=== PATIENT | female | born 2000 | race Caucasian/White ===

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

== ENCOUNTER 2022-08-23 02:55 | Emergency (ER) | payer OTHER, SELFPAY ==
[2022-08-23] VITALS (15 sets, daily range): BP systolic 83–120; BP diastolic 50–58; PULSE 50–73; RESP 17; TEMP 36.6; O2SAT 97–100; BMI 22.3
[2022-08-23 03:28] LABS: Add Manual Diff / Slide Review NO; Basophils Absolute Auto 0 /uL (0-100); Basophils Percent Auto 0.1 % (0-2); Eosinophils Absolute Auto 0 /uL (0-450); Eosinophils Percent Auto 0.1 % (2-4); Hematocrit 41.5 % (36-46); Hemoglobin 14.3 g/dL (12.0-16.0); Lymphocytes Absolute Auto 1300 /uL (1100-4500); Lymphocytes Percent Auto 8.4 % (25-40); Mean Corpuscular HGB Conc 34.5 % (30-36); Mean Corpuscular Hemoglobin 30.5 PG (26-34); Mean Corpuscular Volume 88.4 fL (80-100); Monocytes Absolute Auto 1100 /uL (0-900); Monocytes Percent Auto 7.1 % (3-14); Neutrophils Absolute Auto 12500 /uL (1500-7000); Neutrophils Percent Auto 84.3 % (50-75); Platelet Count 157 X10^3/uL (150-400); Red Blood Cell Count 4.69 X10^6/uL (4.0-5.2); Red Cell Distribution Width 13.8 % (11.6-14.8); White Blood Cell Count 14.9 X10^3/uL (4.5-11.0)
[2022-08-23] MEDS: ONDANSETRON 4 MG/2 ML INJ IV (03:28)
[2022-08-23 03:39] LABS: Alanine Aminotransferase 16 IU/L (<35); Albumin 4.3 g/dL (3.5-5.0); Albumin Globulin Ratio 1.4 (1.0-2.8); Alkaline Phosphatase 70 U/L (38-126); Aspartate Aminotransferase 17 IU/L (14-36); BUN Creatinine Ratio 12.8 (6-22); Bilirubin Total 2.1 mg/dL (0.2-1.3); Blood Urea Nitrogen 6 mg/dL (7-17); Calcium 9.1 mg/dL (8.4-10.2); Carbon Dioxide 20 mmol/L (22-32); Chloride 104 mmol/L (98-107); Estimated Glomerular Filt Rate > 60 mL/min (>60); Glucose 88 mg/dL (70-100); HEMOLYSIS < 15 (0-50); Lipase 51 U/L (23-300); Potassium 3.6 mmol/L (3.4-5.1); Sodium 134 mmol/L (137-145); Total Protein 7.3 g/dL (6.3-8.2)
[2022-08-23] MEDS: SODIUM CHLORIDE 0.9% 1,000 ML 1000 ML IV ×2 (04:14→04:59)
[2022-08-23] MEDS: KETOROLAC 30 MG/ML VIAL 15 MG IV (04:14)
--- NOTE | 2022-08-23 04:21 | ED.ABDPAIN ---
HPI - Abdominal Pain General Chief Complaint: Abdominal Pain Stated Complaint: ABD Pain Nausea vomiting Time Seen by Provider: 08/23/22 03:30 Source: patient Mode of arrival: Ambulatory History of Present Illness HPI narrative: Patient healthy 21-year-old female who presents with diarrhea vomiting and back pain. She is 8 weeks . She reports it started around 11:00 a.m. this morning she had frequent episodes of diarrhea she was unable to keep anything down she had vomited multiple times including bile. She has bilateral flank pain. Helps when it gets massage to rubbed but soon as that stops it comes again. She is not able to keep down any medication. She feels a little lightheaded no dizziness she did not pass out. She denies any vaginal bleeding. She reports that she had an ultrasound a couple days ago she reports that everything looked good which are assuming is an IUP. She has no specific lower abdominal pain. Related Data Home Medications Medication Instructions Recorded Confirmed cholecalciferol (vitamin D3) 125 125 mcg PO DAILY 08/03/22 08/19/22 mcg (5,000 unit) capsule prenat.vits,simone,[id number]-ajjo-guxji 1 tab PO DAILY 08/03/22 08/19/22 Previous Rx's Medication Instructions Recorded ondansetron 4 mg disintegrating 4 mg PO Q6H #20 tabs 08/19/22 tablet ondansetron 4 mg disintegrating 4 mg PO Q8H PRN nausea and 08/23/22 tablet vomiting #10 tabs Allergies Allergy/AdvReac Type Severity Reaction Status Date / Time amoxicillin [AMOXICILLIN] Allergy Unknown Rash Verified 08/19/22 11:24 Review of Systems Review of Systems ROS Unobtainable: All systems reviewed & are unremarkable except as noted in HPI and below Patient History Medical History Anxiety disorder Bulimia nervosa Genital herpes Surgical History H/O exploratory laparotomy History of surgery on arm Previous section Family History Grandfather Pancreatic cancer Diabetes mellitus Grandmother Pancreatic cancer Breast cancer Liver cancer Mother Hypertension Family estrangement Grandmother Hypertension Social History marital status: unmarried,living together number of children: 1 household members: significant other and children lives independently: Yes caregiver/support person: Yes housing: house pets and animals: Yes education level: high school occupational status: employed current occupational exposures/hazards: No special darrick needs: No travel history: recent (domestic only) seatbelt use: always water heater temp set < 120 deg: Yes working smoke detector in home: Yes fire extinguisher in home: Yes carbon monox detector in home: Yes firearms in home: Yes firearms unloaded and locked: Yes do you feel safe at home: Yes Smoking Status: Former smoker Tobacco: How many years used: 4 second hand exposure: No alcohol intake: never substance use type: does not use during the past year weight has: other (more than pre-baby, but happier w/ this weight) daily servings fruits/ve-4 caffeine: No Type(s) of exercise: walking, weight lifting and other (pilates) additional social history: Hx bulimia, pt stopped purging when she got with her first child and has felt that there is too much to live for since then and has not had a relapse although she has never had any formal eating disorder treatment. She feels that her current weight is much healthier than her pre-baby weight was, and does not have concerns about knowing her weights during . Smoking Status: Former smoker Substance Use Type: does not use Exam Initial Vital Signs Initial Vital Signs: Vital Signs Temperature 98 F 08/23/22 03:07 Pulse Rate 59 L 08/23/22 03:07 Respiratory Rate 17 08/23/22 03:07 Blood Pressure 120/58 L 08/23/22 03:07 Pulse Oximetry 97 08/23/22 03:07 Oxygen Delivery Method Room Air 08/23/22 03:07 GENERAL: Alert 21-year-old female HEENT: Head atraumatic,EOMI, pupils reactive, face symmetric, moist mucous membranes CARDIOVASCULAR: Regular rate and rhythm without murmurs, rubs or gallops. RESPIRATORY: Breath sounds equal bilaterally, no wheezes rales or rhonchi. ABDOMEN: Soft, nontender. Normoactive bowel sounds all 4 quadrants. No guarding or rebound. : Mild bilateral CVA tenderness significant pain EXTREMITIES: Normal range of motion, no clubbing or edema. Neurovascularly intact NEUROLOGICAL: Alert and oriented x4. SKIN: Warm, dry, no laceration, no petechiae, no rashes or lesions. Course Orders Ordered: ED Orders 08/23/22 03:20 Complete Blood Count AUTO DIFF Stat Comprehensive Metabolic Panel Stat Lactate (Lactic Acid) Stat Lipase Stat Ondansetron HCl (Ondansetron 4 Mg Odt) 4 mg PO NOW PRN PRN Reason: Nausea And Vomiting Ondansetron HCl (Ondansetron 4 Mg/2 Ml Inj) 4 mg IV NOW PRN PRN Reason: Nausea And Vomiting Last Admin: 08/23/22 03:28 Dose: 4 mg Documented By: HNG Discontinued Medications Sodium Chloride (Normal Saline 0.9%) 1,000 mls @ 1,000 mls/hr IV BOLUS ONE Stop: 08/23/22 04:53 Last Infusion: 08/23/22 04:58 Dose: 0 mls/hr Documented By: Admin: 08/23/22 04:14 Dose: 1,000 mls/hr Documented By: CEZAR Sodium Chloride (Normal Saline 0.9%) 1,000 mls @ 1,000 mls/hr IV BOLUS ONE Stop: 08/23/22 05:39 Last Admin: 08/23/22 04:59 Dose: 1,000 mls/hr Documented By: CEZAR Ketorolac Tromethamine (Ketorolac 30 Mg/Ml Vial) 15 mg IV NOW ONE Stop: 08/23/22 03:55 Last Admin: 08/23/22 04:14 Dose: 15 mg Documented By: CEZAR Vital Signs Vital signs: Vital Signs - 8 hr 08/23/22 03:07 Temperature 98 F Pulse Rate 59 L Respiratory Rate 17 Blood Pressure 120/58 L Pulse Oximetry 97 Oxygen Delivery Method Room Air MDM - Abdominal Pain Lab Data 08/23/22 03:20 08/23/22 03:20 Labs: Lab Results 08/23/22 08/23/22 08/23/22 Range/Units 03:20 03:20 03:20 WBC 14.9 H (4.5-11.0) X10^3/uL RBC 4.69 (4.0-5.2) X10^6/uL Hgb 14.3 (12.0-16.0) g/dL Hct 41.5 (36-46) % MCV 88.4 (80-100) fL MCH 30.5 (26-34) PG MCHC 34.5 (30-36) % RDW 13.8 (11.6-14.8) % Plt Count 157 (150-400) X10^3/uL Neut % (Auto) 84.3 H (50-75) % Lymph % (Auto) 8.4 L (25-40) % [place] % (Auto) 7.1 (3-14) % Eos % (Auto) 0.1 L (2-4) % Baso % (Auto) 0.1 (0-2) % Neut # (Auto) 15717 H (6423-9785) /uL Lymph # (Auto) 1300 (2042-8659) /uL [place] # (Auto) 1100 H (0-900) /uL Eos # (Auto) 0 (0-450) /uL Baso # (Auto) 0 (0-100) /uL Sodium 134 L (137-145) mmol/L Potassium 3.6 (3.4-5.1) mmol/L Chloride 104 (98-107) mmol/L Carbon Dioxide 20 L (22-32) mmol/L BUN 6 L (7-17) mg/dL Creatinine 0.47 L (0.52-1.04) mg/dL Estimated GFR > 60 (>60) mL/min BUN/Creatinine Ratio 12.8 (6-22) Glucose 88 (70-100) mg/dL Lactate 1.0 (0.7-2.1) mmol/L Calcium 9.1 (8.4-10.2) mg/dL Total Bilirubin 2.1 H (0.2-1.3) mg/dL AST 17 (14-36) IU/L ALT 16 (<35) IU/L Alkaline Phosphatase 70 (38-126) U/L Total Protein 7.3 (6.3-8.2) g/dL Albumin 4.3 (3.5-5.0) g/dL Globulin 3.0 (1.7-4.1) g/dL Albumin/Globulin Ratio 1.4 (1.0-2.8) Lipase 51 (23-300) U/L Point of care testing: Urine Dip Bedside Urine Glucose Negative Bedside Urine Bilirubin - Negative Bedside Urine Ketone +++ 80 Urine Specific [place] 1.03 Bedside Urine Occult Blood - Negative Bedside Urine pH 6 Bedside Urine Protein - Negative Bedside Urine Urobilinogen - Negative Bedside Urine Nitrite - Negative Bedside Urine Leukocytes - Negative Esterase MDM Narrative Medical decision making narrative: Patient is a healthy 21-year-old female who presents with diarrhea back pain and vomiting for the last 12 hours or so. Unable to keep anything down. She does drop her blood pressure a little. She is given 2 L of IV fluids and Toradol. She is mild leukocytosis of 14 but no electrolyte abnormality or elevated lactate. She really has a soft abdomen I do not feel like she needs any imaging. She has no evidence of vaginal bleeding do not suspect a miscarriage at this time. Her symptoms are consistent with a gastroenteritis of diarrhea and vomiting. Although possible that it is hyperemesis gravidarum. He is tolerating fluids. Blood pressure was low but it came up after 2 L. Discharge Plan Departure Patient Disposition: Home Clinical Impression: Gastroenteritis, Instructions: DI for Viral Gastroenteritis -- Adult Activity Restrictions/Additional Instructions: *You have been diagnosed with gastroenteritis *What to do: Increase fluid intake as tolerated recommend Gatorade or Gatorade like product. *Continue to take medications as directed Zofran 4 mg every 8 hours if needed for nausea or vomiting *Follow up with your primary care provider in 2-3 days or call [phone] *Return to ER if you should have persistent vomiting despite medication. Dizziness lightheadedness or passing out. [or] any new, worsening or concerning symptoms Prescriptions: New ondansetron 4 mg tablet,disintegrating 4 mg PO Q8H PRN (Reason: nausea and vomiting) Qty: 10 0RF No Action ondansetron 4 mg tablet,disintegrating 4 mg PO Q6H Qty: 20 2RF cholecalciferol (vitamin D3) 125 mcg (5,000 unit) capsule 125 mcg PO DAILY prenat.vits,simone,[id number] Tablet 1 tab PO DAILY Referrals: Miscellaneous,Doctor, MD [Primary Care Provider] - Stand Alone Forms: Patient Portal/API
== END 2022-08-23 06:26 | disposition home or self-care (01) ==
PROVIDERS: Emergency Provider Emergency Medicine
DX: O26.891 Other specified pregnancy related conditions, first trimester (principal); K52.9 Noninfective gastroenteritis and colitis, unspecified; Z3A.08 8 weeks gestation of pregnancy
CPT/HCPCS: 36415; 80053; 81003; 83605; 83690; 85025; 96374; 96375; 99284; J1885; J2405

== ENCOUNTER → 2022-09-15 10:06 | Outpatient (CLI) | payer OTHER, SELFPAY ==
[2022-09-15 11:40] LABS: Add Manual Diff / Slide Review NO; Basophils Absolute Auto 0 /uL (0-100); Basophils Percent Auto 0.2 % (0-2); Eosinophils Absolute Auto 100 /uL (0-450); Eosinophils Percent Auto 0.8 % (2-4); Hematocrit 42.2 % (36-46); Hemoglobin 14.6 g/dL (12.0-16.0); Lymphocytes Absolute Auto 1900 /uL (1100-4500); Lymphocytes Percent Auto 19.4 % (25-40); Mean Corpuscular HGB Conc 34.6 % (30-36); Mean Corpuscular Hemoglobin 31.3 PG (26-34); Mean Corpuscular Volume 90.3 fL (80-100); Monocytes Absolute Auto 800 /uL (0-900); Monocytes Percent Auto 8.4 % (3-14); Neutrophils Absolute Auto 7100 /uL (1500-7000); Neutrophils Percent Auto 71.2 % (50-75); Platelet Count 174 X10^3/uL (150-400); Red Blood Cell Count 4.67 X10^6/uL (4.0-5.2); Red Cell Distribution Width 13.5 % (11.6-14.8)
[2022-09-15 12:10] LABS: Hepatitis B Surface Antigen NEGATIVE s/c (NEGATIVE); Rubella Antibody IgG 72.7 IU/mL (>15)
[2022-09-15 12:29] LABS: HIV 1 & 2 Ab/Ag 4th Gen Combo NEGATIVE (NEGATIVE); Hep C Virus Ab w/Reflex Quant NEGATIVE s/c (NEGATIVE)
[2022-09-16 06:19] LABS: RPR Screen Non Reactive (Non Reactive)
[2022-09-16 11:37] LABS: Varicella IgG Antibody 345 index (Immune >165)
== END ==
PROVIDERS: Referring Provider Obstetrics & Gynecology; Visit Provider Obstetrics & Gynecology
DX: Z34.81 Encounter for supervision of other normal pregnancy, first trimester (principal)
CPT/HCPCS: 36415; 80055; 86787; 86803; 86850; 86900; 86901; 87389

== ENCOUNTER → 2022-11-11 08:43 | Outpatient (CLI) | payer OTHER, SELFPAY ==
[2022-11-11 14:51] LABS: Urine N gonorrhoeae NOT DETECTED
[2022-11-11 15:05] LABS: Urine Chlamydia NOT DETECTED
== END ==
PROVIDERS: Visit Provider Specialist
DX: Z34.82 Encounter for supervision of other normal pregnancy, second trimester (principal); Z3A.19 19 weeks gestation of pregnancy
CPT/HCPCS: 87491; 87591

== ENCOUNTER → 2022-11-12 14:43 | Outpatient (CLI) | payer OTHER, SELFPAY ==
--- NOTE | 2022-11-12 14:44 | DI.US.S_ITS ---
PROCEDURE: US OB >= 14 WEEKS FETUS INDICATIONS: ANATOMY SCAN OUTSIDE/PRIOR DATING DATA: Last menstrual period (LMP): 06/17/2022. LMP-based estimated date of delivery (MADALYN): 03/24/2023 First dating scan (date and location): 08/19/2022. Estimated date of delivery (MADALYN) from first dating scan: 04/01/2023. The calculations are made using the working MADALYN of 04/01/2023. TECHNIQUE: Real-time scanning was performed of the fetus, with image documentation and biometric measurements. Endovaginal scanning: Non COMPARISON: [facility] [place], , OB >= 14 WEEKS FETUS, 09/15/2022, 10:07. FINDINGS: General: A single living intrauterine gestation is present. Presentation: Cephalic. Placenta: Placental position is posterior , without previa. Amniotic fluid index: 10.0 cm, normal range is 5-24 cm. Single deepest vertical pocket is 3.7 cm. heart rate: 135 beats per minute. Maternal cervical canal: 3.7 cm long. Normal lower limit is 2.5 cm. biometrics: Biparietal diameter: 4.6 cm, 20 week 0 day Head circumference: 17.4 cm, 20 week 0 day Abdominal circumference: 14.7 cm, 20 week 0 day Femur length: 3.2 cm, 20 week 0 day Clinically estimated gestational age: 20 week 0 day Composite gestational age from present scan: 20 week 0 day Estimated weight and percentile: 327 g, 46th percentile Anatomic survey: Neuro: Ventricles are non-dilated at less than 10 mm. Cisterna magna is normal at 3-11 mm. Cerebellum is normal in size and morphology. Nuchal skin fold: Normal at less than 6 mm between 14-21 weeks gestational age. Face: Nose and lips, facial profile are normal. Spine: No evidence for spina bifida. Heart: 4-chambered heart is present, with normal ventricular outflow tracts. Diaphragm: Diaphragm is intact. Stomach: Left-sided stomach is present. Kidneys: No hydronephrosis. Normal is less than 5 mm in 2nd trimester, less than 7 mm in 3rd trimester. Cord: 3-vessel cord has orthotopic insertion. Bladder: Normal in size. Extremities: All 4 extremities identified. IMPRESSION: Single live intrauterine consistent with 20 week 0 day gestation Approved by: Dieter Tobar M.D. on 11/12/2022 at 20:43
[2022-11-14 22:11] LABS: AFP Value 71.4 ng/mL (.); Insulin Dep Diabetes No (.); OSBR Risk 1IN 6916 (.); Results Report (.); Test Results *Screen Negative* (.)
== END ==
PROVIDERS: Specialist; Referring Provider Obstetrics & Gynecology; Visit Provider Obstetrics & Gynecology
DX: Z34.82 Encounter for supervision of other normal pregnancy, second trimester (principal); Z3A.20 20 weeks gestation of pregnancy
CPT/HCPCS: 36415; 76811; 82105; 87086

== ENCOUNTER 2022-12-27 16:21 | Outpatient (CLI) | payer OTHER, SELFPAY ==
--- NOTE | 2022-12-27 17:38 | P.HPOB_ITS ---
OB HPI Date/Time Date Patient Seen: 12/27/22 Time Patient Seen: 17:38 History of Present Condition Chief complaint: pelvic pain /spotting : 2 Para: 1 Estimated Date of Delivery: 04/01/23 Estimated Gestational Age (weeks): 26w 3d Narrative: Patient gives a week and a half history of lower abdominal pain. She states it is roughly 6/10 maximum. She states it is worse while she is moving twisting and turning. 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 She states that the pain gets progressively worse throughout the day. She states she feels a ripping pain particularly on the left-hand side. She has had a previous section which could explain that sensation. She also has had an episode of spotting of red blood in the underwear about a dime size over the last day. She has not had any recent intercourse to precipitate this. She denies any contraction pain at this time. History of Present care: good care Dating criteria: based on 1st trimester US only Ultrasounds: normal mid trimester US (Twenty week ultrasound did not show evidence of any previa.) Obstetrical complications: none (Patient had a previous section done roughly 2 years ago for distress.) Preadmission Labs Blood type: O (+) positive [facility] Medical History (Updated 11/11/22 @ 08:52 by Lolly Morales MD) Anxiety disorder Bulimia nervosa Genital herpes Headache Scoliosis Surgical History (Updated 08/29/22 @ 20:51 by Pari Trujillo) Anesthesia H/O exploratory laparotomy History of surgery on arm (~2006) Previous section (~04/22/21) Family History (Updated 08/29/22 @ 20:54 by Pari Trujillo) Grandfather Pancreatic cancer Diabetes mellitus Grandmother Pancreatic cancer Breast cancer Liver cancer Thyroid cancer Cancer of kidney Mother Hypertension Family estrangement Mental health problem Grandmother Hypertension Mental health problem Father Diabetes mellitus Grandfather Colon cancer Social History marital status: unmarried,living together number of children: 1 household members: significant other and children lives independently: Yes caregiver/support person: Yes housing: house pets and animals: Yes education level: high school occupational status: employed current occupational exposures/hazards: No special darrick needs: No travel history: recent (domestic only) seatbelt use: always water heater temp set < 120 deg: Yes working smoke detector in home: Yes fire extinguisher in home: Yes carbon monox detector in home: Yes firearms in home: Yes firearms unloaded and locked: Yes do you feel safe at home: Yes Smoking Status: Former smoker Tobacco: How many years used: 4 second hand exposure: No alcohol intake: never substance use type: does not use during the past year weight has: other (more than pre-baby, but happier w/ this weight) daily servings fruits/ve-4 caffeine: No Type(s) of exercise: walking, weight lifting and other (pilates) additional social history: Hx bulimia, pt stopped purging when she got with her first child and has felt that there is too much to live for since then and has not had a relapse although she has never had any formal eating disorder treatment. She feels that her current weight is much healthier than her pre-baby weight was, and does not have concerns about knowing her weights during . Meds Home Medications and Allergies Home Medications Medication Instructions Recorded Confirmed Type cholecalciferol (vitamin D3) 125 125 mcg PO DAILY 08/03/22 12/10/22 History mcg (5,000 unit) capsule prenat.vits,simone,[id number] 1 tab PO DAILY 08/03/22 12/10/22 History ondansetron 4 mg disintegrating 4 mg PO Q6H #20 tabs 08/19/22 12/10/22 Rx tablet ondansetron 4 mg disintegrating 4 mg PO Q8H PRN nausea and 08/23/22 12/10/22 Rx tablet vomiting #10 tabs Allergies Allergy/AdvReac Type Severity Reaction Status Date / Time amoxicillin [AMOXICILLIN] Allergy Unknown Rash Verified 12/10/22 08:51 OB Exam Vital signs Blood Pressure: 92/51 Pulse Rate: 100 Respiratory Rate: 13 Temperature: 36.6 F HENMT Head: normal to inspection Mouth: lip normal, tongue normal and other (Dentition is in good repair) Eyes Direct ophthalmoscopy: normal light reflex and other (Nonicteric) Resp Effort & Inspection: normal respiratory effort and able to speak in complete sentences Auscultation: clear to auscultation bilaterally Cardio Rate: regular rate Rhythm: regular rhythm Heart Sounds: S1 normal and S2 normal GI Inspection: normal to inspection and incision (Clean and dry) Palpation: Yes soft and Yes tender (uterus nontender. tenderness groin bilaterally duplicates pain) Auscultation: normal bowel sounds External Female Exam: Yes normal external appearance Speculum Exam - Vagina: Yes normal appearance of the vagina and Yes normal dis charge Speculum Exam - Cervix: normal appearance of the cervix Bimanual Exam- Vagina & Uterus: normal bimanual exam (Cervix closed no bleeding long presenting part high) Assessment and Plan Assessment and Plan Assessment and Plan narrative: 22-year-old G2 P 1001 with EDC 01 April 2026 weeks 3 days by first-trimester ultrasound. Bilateral round ligament pain. 2. Spotting with a non please previa and O- positive blood type. Patient reassured. Told to repeat port any further spotting. Told that she should stay off work for the next 4 days. Recommend that she try half days to see how she tolerates this. Time Spent with Patient Total time spent with greater than 50% in coordination of care (as documented) at patient's floor/unit and/or counseling patient:: Greater than 35 minutes (Time was spent with history and physical, explaining her medical process. Reviewing treatment plan.)
[2022-12-27 17:53] VITALS: BP 92/51; PULSE 100; RESP 13; TEMP 2.6; TEMP 36.6
== END 2022-12-27 17:43 | disposition home or self-care (01) ==
LOC: LABOR 16:25 → OB 12-31 09:57
PROVIDERS: Referring Provider Obstetrics & Gynecology; Visit Provider Obstetrics & Gynecology
DX: O26.852 Spotting complicating pregnancy, second trimester (principal); O26.892 Other specified pregnancy related conditions, second trimester; R10.30 Lower abdominal pain, unspecified; Z3A.26 26 weeks gestation of pregnancy
CPT/HCPCS: 59025; G0378; G0379

== ENCOUNTER → 2023-01-13 08:19 | Outpatient (CLI) | payer OTHER, SELFPAY ==
[2023-01-13 09:53] LABS: Hematocrit 35.3 % (36-46); Hemoglobin 12.2 g/dL (12.0-16.0)
[2023-01-13 10:29] LABS: GTT (PREG) 1 Hour PP 50gm Dose 100 mg/dL (76-139)
== END ==
PROVIDERS: Referring Provider Specialist; Visit Provider Specialist
DX: Z34.82 Encounter for supervision of other normal pregnancy, second trimester (principal)
CPT/HCPCS: 36415; 82950; 85014; 85018

== ENCOUNTER → 2023-02-18 10:44 | Outpatient (CLI) | payer OTHER, SELFPAY ==
[2023-02-20 11:29] LABS: Candida species Positive (Negative); Gardnerella vaginalis Negative (Negative); Trichomoas vaginalis Negative (Negative)
== END ==
PROVIDERS: Visit Provider Physician Assistant Medical
DX: N89.8 Other specified noninflammatory disorders of vagina (principal)
CPT/HCPCS: 87480; 87510; 87660

== ENCOUNTER → 2023-03-02 09:26 | Outpatient (CLI) | payer OTHER, SELFPAY ==
[2023-03-03 12:38] LABS: Strep Grp B PCR NEG for Grp B Strep
== END ==
PROVIDERS: Visit Provider Obstetrics & Gynecology
DX: Z34.83 Encounter for supervision of other normal pregnancy, third trimester (principal); Z3A.35 35 weeks gestation of pregnancy
CPT/HCPCS: 87653

== ENCOUNTER 2023-03-25 05:40 | Inpatient (IN) | payer OTHER, SELFPAY ==
[2023-03-25 06:06] VITALS: BP 96/56
--- NOTE | 2023-03-25 06:51 | P.HPOB_ITS ---
OB HPI Date/Time Date of admission: 03/25/23 Date Patient Seen: 03/25/23 Time Patient Seen: 06:51 History of Present Condition Chief complaint: Repeat MADALYN Calculator Estimated Delivery Date Method Current WG Current Estimate 04/01/23 Ultrasound #1 39w 0d Other Estimates 03/24/23 LMP (Certain) 40w 1d Estimated Gestational Age (weeks): 39 : 2 Para: 1 care: initiated at week # (7), number of visits (12) and pounds weight gain (15) Dating criteria OB: LMP confirmed by 1st trimester US Ultrasounds: normal 1st trimester US and normal mid trimester US Obstetrical complications: none Medical complications OB: none Indications Operative indications ( section): previous uterine surgery Preadmission Labs Last OB Lab Results: Blood Type O Positive 09/15/22 10:25 Antibody Screen Negative 09/15/22 10:25 Hematocrit 35.3 % (36-46) L 01/13/23 09:31 Hemoglobin 12.2 g/dL (12.0-16.0) 01/13/23 09:31 Hepatitis B Surface Antigen Negative s/c (NEGATIVE) 09/15/22 10 :25 Hepatitis C Antibody Negative s/c (NEGATIVE) 09/15/22 10:25 Rubella Antibody 72.7 IU/mL (>15) 09/15/22 10:25 Varicella-Zoster IgG Antibody 345 index (Immune >165) 09/15/22 10:25 Glucose 1 Hour 100 mg/dL (76-139) 01/13/23 09:31 Group B Streptococcus (PCR) Neg for grp b strep 03/02/23 09:26 -: Chlamydia screen: negative, Gonorrhea screen: negative and Urine: negative -: PAP smear: Normal Genetic Screens: Cell-free DNA: Normal and Alpha-fetoprotein: Normal External Labs -: Urine: negative Prior (ies) Past Pregnancies Del. Date GA/Weeks Labor Lgth Wt Sex Route Outcome Anesthesia Place Delv Breastfeed Preg Comp Name 04/22/21 40.1 6 lb 1 oz Male live - full term [facility] 5 months none Jose Delivery Date: 04/22/21 Last Updated by: Faye Betancourt RN failed induction, intolerance Evaluation Evaluation Baseline heart rate: 125 Variability: Moderate (11-25) monitor accelerations: Present Monitor Decelerations: Absent Status: Category l PFSH Medical History (Updated 11/11/22 @ 08:52 by Lolly Morales MD) Headache Scoliosis Genital herpes Bulimia nervosa Anxiety disorder Surgical History (Updated 08/29/22 @ 20:51 by Pari Trujillo) Anesthesia H/O exploratory laparotomy History of surgery on arm (~2006) Previous section (~04/22/21) Family History (Updated 08/29/22 @ 20:54 by Pari Trujillo) Grandfather Pancreatic cancer Diabetes mellitus Grandmother Pancreatic cancer Breast cancer Liver cancer Thyroid cancer Cancer of kidney Mother Hypertension Family estrangement Mental health problem Grandmother Hypertension Mental health problem Father Diabetes mellitus Grandfather Colon cancer Social History marital status: unmarried,living together number of children: 1 household members: significant other and children lives independently: Yes caregiver/support person: Yes housing: house pets and animals: Yes education level: high school occupational status: employed current occupational exposures/hazards: No special darrick needs: No travel history: recent (domestic only) seatbelt use: always water heater temp set < 120 deg: Yes working smoke detector in home: Yes fire extinguisher in home: Yes carbon monox detector in home: Yes firearms in home: Yes firearms unloaded and locked: Yes do you feel safe at home: Yes Smoking Status: Former smoker Tobacco: How many years used: 4 second hand exposure: No alcohol intake: never substance use type: does not use during the past year weight has: other (more than pre-baby, but happier w/ this weight) daily servings fruits/ve-4 caffeine: No Type(s) of exercise: walking, weight lifting and other (pilates) additional social history: Hx bulimia, pt stopped purging when she got with her first child and has felt that there is too much to live for since then and has not had a relapse although she has never had any formal eating disorder treatment. She feels that her current weight is much healthier than her pre-baby weight was, and does not have concerns about knowing her weights during . Meds Home Medications and Allergies Home Medications Medication Instructions Recorded Confirmed Type cholecalciferol (vitamin D3) 125 125 mcg PO DAILY 08/03/22 03/18/23 History mcg (5,000 unit) capsule prenat.vits,simone,hkl-hhmn-asord 1 tab PO DAILY 08/03/22 03/18/23 History ondansetron 4 mg disintegrating 4 mg PO Q6H #20 tabs 08/19/22 03/18/23 Rx tablet ondansetron 4 mg disintegrating 4 mg PO Q8H PRN nausea and 08/23/22 03/18/23 Rx tablet vomiting #10 tabs valacyclovir 500 mg tablet 500 mg PO BID #10 tabs 03/02/23 03/18/23 Rx (Valtrex) valacyclovir 500 mg tablet 500 mg PO DAILY #30 tabs 03/02/23 03/18/23 Rx (Valtrex) Allergies Allergy/AdvReac Type Severity Reaction Status Date / Time amoxicillin [AMOXICILLIN] Allergy Unknown Rash Verified 03/18/23 11:51 OB Exam Narrative Exam Narrative: Generally: Patient is sitting up in bed, no acute distress Lungs: Clear to auscultation bilaterally Cardiovascular: Regular rhythm Fundal height: 38 cm Estimated weight: 7 lb Abdomen: Well-healed Pfannenstiel incision. No hepatosplenomegaly Extremities: No edema Assessment and Plan Assessment and Plan Assessment and Plan narrative: Assessment: 22-year-old 2 para 1 at 39 weeks gestation with a previous section Plan: Repeat low-transverse section The risks, benefits, and alternatives to the procedure were explained to the patient. The risks including bleeding, infection, injury to the bowel, bladder, or ureters. She understands all of these risks and agrees to proceed. A full par Q was held and consent form was signed. Time Spent with Patient Total time spent with greater than 50% in coordination of care (as documented) at patient's floor/unit and/or counseling patient:: less than 15 minutes
--- NOTE | 2023-03-25 07:00 | PM.PREOP ---
Pre-operative Note Interval Note History & Physical reviewed/Exam performed by Physician: Yes Changes to H&P: No H&P completed within 30 days and has changed as indicated here:: 03/25/23
[2023-03-25 07:01] LABS: Add Manual Diff / Slide Review NO; Basophils Absolute Auto 0 /uL (0-100); Basophils Percent Auto 0.4 % (0-2); Eosinophils Absolute Auto 100 /uL (0-450); Eosinophils Percent Auto 1.7 % (2-4); Hematocrit 31.8 % (36-46); Hemoglobin 10.7 g/dL (12.0-16.0); Lymphocytes Absolute Auto 2000 /uL (1100-4500); Lymphocytes Percent Auto 26.3 % (25-40); Mean Corpuscular HGB Conc 33.7 % (30-36); Mean Corpuscular Hemoglobin 28.9 PG (26-34); Mean Corpuscular Volume 85.9 fL (80-100); Monocytes Absolute Auto 600 /uL (0-900); Monocytes Percent Auto 7.7 % (3-14); Neutrophils Absolute Auto 4800 /uL (1500-7000); Neutrophils Percent Auto 63.9 % (50-75); Platelet Count 145 X10^3/uL (150-400); Red Blood Cell Count 3.71 X10^6/uL (4.0-5.2); Red Cell Distribution Width 12.9 % (11.6-14.8); White Blood Cell Count 7.5 X10^3/uL (4.5-11.0)
[2023-03-25 07:22] VITALS: BP 96/59
[2023-03-25] MEDS: CITRIC ACID/SODIUM CITRATE 15 ML SOLUTION 30 ML PO (07:37)
[2023-03-25] MEDS: CEFAZOLIN 2 GM/100 ML PREMIX 100 ML IV (08:00)
[2023-03-25] MEDS: ACETAMINOPHEN IV 1,000 MG/100 ML VIAL 400 MG IV (08:15)
--- NOTE | 2023-03-25 08:24 | SUR.OPER ---
Supine on Padded OR bed, head on pillow, safety belt at thigh, arms secured on padded arm boards at <90 degrees abduction. Bump under right buttock. Legs uncrossed with pillow under knees, gel pad to heels, tape over blanket to lower legs.
--- NOTE | 2023-03-25 08:34 | SUR.OPER ---
Viable baby girl born at 0826. Placenta delivered at 0829. Placenta and cord blood given to OB RN. Suction vacuum delivery kit used x1.
--- NOTE | 2023-03-25 09:09 | PM.OBCS.1 ---
Operative Date/Time/Diagnoses Date of procedure: 03/25/23 Time of procedure: 09:09 Pre-op diagnosis: 39 weeks gestation Previous C section Post-op diagnosis: same Procedure & Clinicians Procedure: Repeat low transverse C section Lysis of omental adhesions Same procedure as scheduled: Yes Indications: 22 year old at 39 wks gestation with a previous C section Surgeon: Veena Hallman Click Yes if Unassisted: No Novelty Printing Machine Operator: Kaylynn Choudhury Reason for Novelty Printing Machine Operator: The bilingual medical assistant was necessary to retract upon entry into the abdomen the uterus. She assisted with delivery of the with fundal pressure. She assisted with closure with retraction, clipping of suture, and closure of the contralateral fascia. Anesthesia Type: Spinal (with Duramorph) Operative Notes Findings: Live female infant in the [facility] presentation Omental adhesions to fundus Normal uterus, tubes and ovaries Clear Amniotic fluid Closure Type: primary Specimen(s): cord blood and placenta Intraoperative meds administered: Acetaminophen, Duramorph, Ketorolac and Pitocin Applied: Catheter (to continuous drainage) Estimated Blood Loss (mL): 650 Blood products transfused: none Procedure in detail: The patient was taken to the operating room where she was placed in the seated position. Spinal anesthesia with Duramorph was administered. The patient was then placed in the dorsal supine position with a leftward tilt. She was prepped and draped in the usual sterile fashion. A timeout was performed. After spinal analgesia was found to be adequate, a Pfannenstiel skin incision was made through the previous incision and carried through to the underlying layer fascia. The fascia was nicked in the midline, and the incision extended bilaterally with the Fried scissors. The superior aspect of the fascial incision was grasped with a Morehead clamps, elevated, and the underlying rectus muscles dissected off sharply and bluntly. Attention was then turned to the inferior aspect of this incision which in a similar fashion was grasped with a Morehead clamps, elevated, and the underlying rectus muscles dissected off sharply and bluntly. The rectus muscles were in the midline. The peritoneum was identified, grasped between 2 hemostats, and entered sharply with the Metzenbaum scissors. This incision was extended superiorly and inferiorly with good visualization of the bladder. The bladder blade was inserted. The vesicouterine peritoneum was identified, grasped with the pickup, and entered sharply with the Metzenbaum scissors. This incision was extended bilaterally, and the bladder flap was created digitally. The bladder blade was reinserted. The lower uterine segment was incised in a transverse fashion with the scalpel. Upon entering the amniotic sac there was moderate amount of clear amniotic fluid. The 's head was delivered without difficulty. The nose and mouth were suctioned with bulb suction. The remainder of the body delivered without difficulty. The cord was double clamped and cut after one minute. The infant was handed off to waiting RN and RT. The placenta was delivered by expression. The uterus was cleared of all clots and debris. The uterine incision was repaired with #1 chromic in a running interlocking fashion, and a second layer the same suture was used for an imbricating layer. Hemostasis was achieved. The tubes and ovaries were examined and were found to be normal. There was omentum stuck to the fundus of the uterus. These were taken down with the Bovie The gutters were cleared of all clots and debris. The bladder flap was reapproximated using 2-0 Vicryl in a running fashion. The parietal peritoneum was closed using 2-0 Vicryl in a running fashion. The fascia was reapproximated using 0 Vicryl in a running fashion. The subcutaneous layer was copiously irrigated with warm normal saline. 5 simple interrupted sutures of 3-0 Vicryl were placed to reapproximate the subcutaneous layer. The skin was closed with 4-0 Monocryl in a subcuticular fashion. Steri-Strips were placed. An Aquacel dressing was placed. The uterus was expressed of a small amount of old blood. Sponge, lap, and instrument counts were correct x-2. The patient tolerated the procedure well, and was taken to PACU in stable condition. Complications: none Baby 1: Infant Gender: Female Presentation: vertex Position: Left Occiput Anterior Placental Delivery Description: Expressed Cord Vessel Description: 3 Vessels and Clamped/Cut (after one minute) score (1 min): 9 score (5 min): 9 weight: 6 lb 10.5 oz Post-operative Condition: stable Disposition: PACU Aftercare: routine postop
[2023-03-25 09:15] VITALS: BP 95/65; PULSE 73; RESP 16; TEMP 36.6; O2SAT 98
[2023-03-25 09:20] VITALS: BP 85/44; PULSE 60; RESP 14; O2SAT 99
[2023-03-25 09:25] VITALS: BP 86/37; PULSE 54; RESP 16; TEMP 36.2; O2SAT 95
[2023-03-25 12:25] LABS: Add Manual Diff / Slide Review NO; Basophils Absolute Auto 0 /uL (0-100); Basophils Percent Auto 0.2 % (0-2); Eosinophils Absolute Auto 100 /uL (0-450); Eosinophils Percent Auto 0.5 % (2-4); Hematocrit 30.3 % (36-46); Hemoglobin 10.2 g/dL (12.0-16.0); Lymphocytes Absolute Auto 1400 /uL (1100-4500); Lymphocytes Percent Auto 10.1 % (25-40); Mean Corpuscular HGB Conc 33.6 % (30-36); Mean Corpuscular Hemoglobin 28.7 PG (26-34); Mean Corpuscular Volume 85.5 fL (80-100); Monocytes Absolute Auto 700 /uL (0-900); Neutrophils Absolute Auto 11800 /uL (1500-7000); Neutrophils Percent Auto 84.2 % (50-75); Platelet Count 147 X10^3/uL (150-400); Red Blood Cell Count 3.54 X10^6/uL (4.0-5.2); Red Cell Distribution Width 12.9 % (11.6-14.8)
[2023-03-25] MEDS: KETOROLAC 30 MG/ML VIAL IV ×2 (14:44→20:45)
[2023-03-25] MEDS: ACETAMINOPHEN 325 MG TABLET 650 MG PO (16:19)
[2023-03-26] MEDS: KETOROLAC 30 MG/ML VIAL IV (02:52)
[2023-03-26] MEDS: ACETAMINOPHEN 325 MG TABLET 650 MG PO (08:50)
[2023-03-26] MEDS: DOCUSATE 100 MG CAPSULE PO (08:50)
[2023-03-26] MEDS: IBUPROFEN 600 MG TABLET PO (08:50)
[2023-03-26] MEDS: PRENATAL VIT,CALC/IRON/FOLIC 1 TABLET 1 TAB PO (08:50)
--- NOTE | 2023-03-28 11:26 | PM.OBDS.1 ---
Discharge Providers Provider Date of admission: 03/25/23 05:40 Discharge Date: 03/26/23 Primary care physician: Doctor Tere MD Consults: 03/25/23 09:32 Consult to Net Application Architect Routine Comment: Discharge provider: Veena Hallman MD Summary Hospital Course Date Patient Seen: 03/26/23 Time Patient Seen: 12:00 Diagnoses: 39 weeks' gestation Previous section Repeat low-transverse section Hospital Course: Patient is a 22-year-old 2 para 2 who presented on March 25, 2023 for a scheduled repeat section at 39 weeks' gestation. She underwent this procedure without complication. She did have a headache while in the operating room and this resolved in the recovery room. Her postoperative course was unremarkable. On postop day # 1 she was tolerating a diet, voiding without the catheter, going well, ambulating without assistance, and pain was well controlled. She is discharged home to follow-up at 1 week for an Aquacel dressing removal. Peripartum Data Delivery Method: Section Procedures: Spinal anesthesia Repeat low-transverse section complications: none 1: Gender: Female Disposition of : home Status at Discharge Cognitive/behavioral status at discharge: oriented Functional status at discharge: independent ambulation Overall status at discharge: patient is progressing back to baseline Time Spent with Patient Time attestation: Total time spent providing and/or coordinating discharge services: Time spent: Less than 30 minutes Objective Labs 03/25/23 11:55 Exam Vital Signs (past 8 hours): Oxygen Delivery Method Room Air Narrative Exam Narrative: Generally: Patient is sitting up in bed, holding infant, no acute distress Lungs: Clear to auscultation bilaterally Cardiovascular: Regular rate and rhythm Fundus: Firm at U -2 Incision: Clean dry and intact with Aquacel dressing Extremities: No edema, negative Homans Discharge Plan Discharge Plan Patient Disposition: Home Provider Discharge Comment: Call with fever, chills, redness or drainage around the incision, or bleeding vaginally more than a pad in an hours Ibuprofen 600 mg every 6 hours as needed Tylenol 650 mg every 6 hours as needed Discharge orders & Medications Prescriptions: Continued cholecalciferol (vitamin D3) 125 mcg (5,000 unit) capsule 125 mcg PO DAILY prenat.vits,simone,[id number] Tablet 1 tab PO DAILY Discontinued ondansetron 4 mg tablet,disintegrating 4 mg PO Q6H Qty: 20 2RF valacyclovir [Valtrex] 500 mg tablet 500 mg PO BID Qty: 10 3RF valacyclovir [Valtrex] 500 mg tablet 500 mg PO DAILY Qty: 30 0RF ondansetron 4 mg tablet,disintegrating 4 mg PO Q8H PRN (Reason: nausea and vomiting) Qty: 10 0RF Follow up/Referrals: Veena Hallman MD [Physician] - (one week follow up for aquacel removal on 04/01/2023 at 10:30 am. six week follow up on 05/06/2022 at 11:30 am. ) Diet/Activity/Treatments Diet: Regular Activity: No heavy lifting Nothing in the vagina for 6 weeks Skin/Wound/Dressing Care Report to your healthcare provider any signs of infection, such as:: chills, fever, increased pain, unusual drainage and unusual redness Dressing: Do not remove Visit Report/Discharge Packet Instructions: DI for Stand Alone Forms: Discharge: Care, Patient Portal/API, Stroke Signs & Symptoms Discharge Data Primary Care Provider: Miscellaneous,Doctor
== END 2023-03-26 12:50 | disposition home or self-care (01) | DRG 788 ==
PROVIDERS: Admitting Provider Obstetrics & Gynecology; Referring Provider Obstetrics & Gynecology; Visit Provider Obstetrics & Gynecology
PROC: 10D00Z1 Extraction of Products of Conception, Low, Open Approach (ICD-10-PCS; CPT 59514; principal; 2023-03-25 07:45)
DX: O34.211 Maternal care for low transverse scar from previous cesarean delivery (principal); O99.62 Diseases of the digestive system complicating childbirth; K66.0 Peritoneal adhesions (postprocedural) (postinfection); Z3A.39 39 weeks gestation of pregnancy; Z37.0 Single live birth
CPT/HCPCS: 36415; 59050; 59510; 59514; 85025; 86850; 86900; 86901; J0131; J0690; J1885; J2250; J2274

== ENCOUNTER → 2023-05-07 10:19 | Outpatient (CLI) | payer OTHER, SELFPAY ==
--- NOTE | 2023-05-07 10:20 | DI.US.S_ITS ---
ULTRASOUND OF LEFT BREAST AND AXILLA: 05/07/2023 CLINICAL: Palpable left breast lump x 5 weeks ( x 6 weeks). No prior exams were available for comparison. Color flow and real-time ultrasound of the left breast axilla were performed. Ivey scale images of the real-time examination were reviewed. There is a 2.9 cm x 1.5 cm x 2.7 cm wider than tall cluster of oval complicated cysts in the left breast at 11 o'clock posterior depth 10 cm from the nipple. This cluster of oval complicated cysts is hypoechoic with a well-defined boundary, internal echoes, and posterior acoustic enhancement. This correlates as palpated and with area of clinical concern. IMPRESSION: PROBABLY BENIGN The 2.9 cm x 1.5 cm x 2.7 cm wider than tall cluster of oval complicated cysts in the left breast most likely is complicated cysts and is probably benign. A follow-up left ultrasound in 6 months is recommended to demonstrate stability. Recommend clinical follow up for persistent or worsening symptoms with instructions to return sooner if development of any clinically suspicious findings in the interim. Findings and recommendations were conveyed to the patient during today's evaluation. This exam was interpreted at Station ID: [id number]. Electronically Signed By: Joesph Wilcox M.D. aty/:05/07/2023 14:54:01 letter sent: Clinical Evaluation Ultrasound BI-RADS: 3 Probably benign
== END ==
LOC: US 10:19
PROVIDERS: Referring Provider Family Medicine; Visit Provider Family Medicine
DX: N60.02 Solitary cyst of left breast (principal); R92.8 Other abnormal and inconclusive findings on diagnostic imaging of breast
CPT/HCPCS: 76642